=== PATIENT | female | born 1985 | race Caucasian/White ===

== ENCOUNTER 2019-09-22 11:30 | Outpatient (CLI) | payer OTHER, SELFPAY ==
--- NOTE | ~2019-09-22 | US_ITS ---
US OB <= 14 weeks fetus DATE: 09/22/2019 12:24 INDICATION: age determination TECHNIQUE: Real-time imaging and Doppler analysis COMPARISON: None FINDINGS: The uterus measures 12.4 centers height, up to 6 cm AP and 8.5 cm transverse dimension. An intrauterine gestational sac is identified. The sac is normally shaped. A pole and yolk sac are identified. movement is detected. heart rate of 163 bpm. [place]-rump length 3.67 cm, consistent with 10 weeks 4 days +/- 1 week gestational age. IBAN by ultraso und is 04/15/2020 compared to 04/16/2020 by LMP. No pelvic mass or abnormal pelvic fluid collection is evident. The ovaries are not visualized. IMPRESSION: Estimated gestational age of 10 weeks 4 days +/- 1 week; IBAN: 04/15/2020 Reviewed, dictated and finalized at Location A. Reviewed, dictated and finalized at location B. IMPRESSION: Estimated gestational age of 10 weeks 4 days +/- 1 week; IBAN: 2020
== END 2019-09-22 11:31 ==
LOC: MICIMG 11:30
PROVIDERS: Visit Provider Obstetrics & Gynecology
DX: Z34.90 Encounter for supervision of normal pregnancy, unspecified, unspecified trimester (principal); Z3A.10 10 weeks gestation of pregnancy
CPT/HCPCS: 76801

== ENCOUNTER 2019-10-23 09:50 | Emergency (ER) | payer OTHER, SELFPAY ==
--- NOTE | ~2019-10-23 | XR_ITS ---
EXAMINATION: XR ankle RT min 3V INDICATION: Right ankle pain TECHNIQUE: Four views of the right ankle are obtained. COMPARISON: None available FINDINGS: There is diffuse ankle soft tissue swelling. Subtle heterotopic ossifications are seen dist al to the malleolus. Bone alignment is normal. IMPRESSION: 1. Subtle heterotopic ossifications adjacent to the malleoli suggestive of avulsion injuries. Reviewed, dictated and finalized at location A. IMPRESSION: 1. Subtle heterotopic ossifications adjacent to the malleoli suggestive of avul jono injuries.
--- NOTE | 2019-10-23 09:56 | ED.GENADULT ---
HPI - General Adult General Chief complaint: Extremity Injury, Lower Stated complaint: rt ankle injury Time Seen by Provider: 10/23/19 09:56 Source: patient Mode of arrival: ambulatory Limitations: no limitations History of Present Illness HPI narrative: 34-year-old female patient presents to the the medical center with complaints of right ankle pain that started last night. Patient states that she tripped down a stair and twisted her right ankle. Patient states it is been swelling and has had increased pain when putting weight on it. Patient states she has been using a cane to get around. Patient is currently 15 weeks Related Data Home Medications Medication Instructions Recorded Confirmed PNV cmb#95-ferrous fumarate-FA 1 tablet PO DAILY 10/23/19 10/23/19 [] calcium carbonate [Calcium 500] 500 mg PO DAILY 10/23/19 10/23/19 progesterone micronized 400 mg PO DAILY 10/23/19 10/23/19 Allergies Allergy/AdvReac Type Severity Reaction Status Date / Time No Known Allergies Allergy Verified 10/23/19 10:00 Review of Systems Review of Systems: Narrative: CONSTITUTIONAL: Denies fever, chills, or sweats. EYES: Denies visual changes, redness, or discharge. ENT: Denies rhinorrhea, congestion, sore throat, or otalgia. CARDIOVASCULAR: Denies chest pain, palpitations, or edema. RESPIRATORY: Denies cough or dyspnea. GASTROINTESTINAL: Denies abdominal pain, nausea, vomiting, or diarrhea. GENITOURINARY: Denies dysuria or hematuria. SKIN: Denies rash or itching. MUSCULOSKELETAL: Denies back pain, joint pain, or myalgia. Positive right ankle pain NEUROLOGIC: Denies headache, numbness, or weakness. PSYCHIATRIC: Denies anxiety or depression. REPLACED BY [facility] Past Medical History Medical History (Updated 10/23/19 @ 10:37 by IMELDA Pete) Migraines Comments At the time of my signature I agree with nursing past medical history, surgical, social, and family history. There is no relevant family history pertinent to the presenting complaint. Exam Narrative: Exam Narrative: GENERAL: Well-appearing, well-nourished, and in no acute distress. HEAD: Normocephalic, atraumatic. EYES: PERRLA and EOMI. ENT: Nares clear, no rhinorrhea or epistaxis. Mucous membranes moist. NECK: Supple. No lymphadenopathy CHEST: Clear to auscultation. No respiratory distress. HEART: Regular rate and rhythm. No murmur heard. Normal peripheral pulses. ABDOMEN: Soft, nontender, nondistended, normal active bowel sounds. EXTREMITIES: Patient is able to bear weight and ambulate with pain right ankle. The R ankle is without obvious asymmetry or deformity when compared to the L ankle. Patient can flex/extend with pain, normal invert/yuko. No obvious surface trauma, ecchymosis, there is significant soft tissue swelling noted around the lateral malleolus. Bony tenderness to palpation over the right lateral malleolus. Anterior talofibular ligament, posterior talofibular ligament, calcaneofibular ligament nontender and without swelling. No tenderness or deformity of the midfoot or over the proximal fifth metatarsal. Good DP and posterior tibial pulses and sensation to light touch normal. Talar tilt test is negative for ligament laxity to valgus or vargus stress. Negative anterior draw. Peroneal nerve is intact with strong eversion and plantar flexion. SKIN: Warm, dry, no rash. NEURO: No focal deficits. Alert and oriented x3. Course Vital Signs Vital signs: Vital Signs Temperature 36.4 C L 10/23/19 10:02 Pulse Rate 118 H 10/23/19 10:02 Respiratory Rate 16 10/23/19 10:02 Blood Pressure 132/80 10/23/19 10:02 Pulse Oximetry 99 10/23/19 10:02 Temperature 36.4 C L 10/23/19 10:02 Pulse Rate 118 H 10/23/19 10:02 Respiratory Rate 16 10/23/19 10:02 Blood Pressure 132/80 10/23/19 10:02 Pulse Oximetry 99 10/23/19 10:02 Vital signs reviewed. Medical Decision Making Differential Diagnosis Differential Diagnosis: Differential diagnosis: F
[2019-10-23 10:02] VITALS: BP 132/80; PULSE 118; RESP 16; TEMP 36.4; O2SAT 99
== END 2019-10-23 10:47 | disposition home or self-care (01) ==
PROVIDERS: Emergency Provider Nurse Practitioner Family
DX: S99.911A Unspecified injury of right ankle, initial encounter (principal); W10.9XXA Fall (on) (from) unspecified stairs and steps, initial encounter
CPT/HCPCS: 73610; 99203; G0463

== ENCOUNTER 2019-10-25 10:58 | Emergency (ER) | payer OTHER, SELFPAY ==
--- NOTE | ~2019-10-25 | CT_ITS ---
EXAMINATION: CT brain wo con DATE: 10/25/2019 11:36 INDICATION: Arm numbness, nausea and hypertension TECHNIQUE: Computed tomography (CT) of the head was performed without intravenous contrast. Sagittal and coronal reconstructions were performed. The mA was adjusted according to patient size. Iterative reconstruction technique was employed. The dose-length product was 605.33 mGy-cm. COMPARISON: None FINDINGS: No acute intracranial hemorrhage, acute infarction or abnormal extra axial fluid collection. Ventricl es are normal and symmetric. No mass/mass effect. Partially visualized mucous retention cyst in the r ight maxillary sinus. The orbits and mastoid air cells are normal. IMPRESSION: 1. Normal brain. No acute intracranial process. Reviewed, dictated and finalized at location A.
[2019-10-25 11:01] VITALS: BP 170/82; PULSE 83; RESP 20; TEMP 36.2; O2SAT 100
--- NOTE | 2019-10-25 11:22 | ECG_ITS ---
Measurements Intervals [place] Rate: 77 P: 33 MA: 169 QRS: 10 QRSD: 88 T: 3 QT: 408 QTc: 462 Interpretive Statements SINUS RHYTHM WITH SINUS ARRHYTHMIA DELAYED PRECORDIAL R/S TRANSITION BORDERLINE T WAVE ABNORMALITY- INFERIOR LEADS BORDERLINE ECG Electronically Signed On 10-26-2019 9:56:16 CDT by Harpreet Acevedo D.O.
--- NOTE | 2019-10-25 11:23 | PC.NURSE ---
verbal order per marilu toth for ct brain wo contrast stat.
--- NOTE | 2019-10-25 11:32 | ED.GENADULT ---
HPI - General Adult General Chief complaint: Neuro Symptoms/Deficit Stated complaint: dizziness, blurred vision Time Seen by Provider: 10/25/19 11:32 History of Present Illness HPI narrative: Patient is a 34-year-old female who presents the ER with dizziness. Patient woke up at 8 AM to having dizziness with nausea and vision loss. Symptoms have persisted and potentially progressed. Patient reports dizziness worsens with positional movements. Associated with sweating as well as vomiting. Reports intermittent tingling of right arm. Also reports she has difficulty finding words at times and thinks she occasionally slurs her speech. Patient is 15 weeks . No alleviating factors. Related Data Home Medications Medication Instructions Recorded Confirmed PNV cmb#95-ferrous fumarate-FA 1 tablet PO DAILY 10/23/19 10/23/19 [] calcium carbonate [Calcium 500] 500 mg PO DAILY 10/23/19 10/23/19 progesterone micronized 200 mg PO BID 10/25/19 Allergies Allergy/AdvReac Type Severity Reaction Status Date / Time No Known Allergies Allergy Verified 10/25/19 11:04 [facility] Past Medical History Medical History (Updated 10/24/19 @ 00:00 by Jose Roper) Migraines Surgical History Surgical History (Updated 10/25/19 @ 12:11 by Dago Maria MD) No pertinent past surgical history Social History Social History (Updated 10/25/19 @ 12:11 by Dago Maria MD) Substance use type: marijuana Gender identity (if verbalized by the patient): Female Course Vital Signs Vital signs: Vital Signs Temperature 97.1 F L 10/25/19 11:01 Pulse Rate 83 10/25/19 11:01 Respiratory Rate 20 10/25/19 11:01 Blood Pressure 170/82 H 10/25/19 11:01 Pulse Oximetry 100 10/25/19 11:01 Temperature 97.1 F L 10/25/19 11:01 Pulse Rate 74 10/25/19 12:14 Respiratory Rate 20 10/25/19 12:14 Blood Pressure 112/93 H 10/25/19 12:14 Pulse Oximetry 100 10/25/19 12:14 Medical Decision Making Vital Signs Vital Signs: Vital Signs Temperature 97.1 F L 10/25/19 11:01 Pulse Rate 83 10/25/19 11:01 Respiratory Rate 20 08/25/20 11:01 Blood Pressure 170/82 H 10/25/19 11:01 Pulse Oximetry 100 10/25/19 11:01 Temperature 97.1 F L 10/25/19 11:01 Pulse Rate 74 10/25/19 12:14 Respiratory Rate 20 10/25/19 12:14 Blood Pressure 112/93 H 10/25/19 12:14 Pulse Oximetry 100 10/25/19 12:14 Lab Data Result diagrams: 10/25/19 11:28 10/25/19 11:28 Labs: Lab Results 10/25/19 10/25/19 10/25/19 Range/Units 11:28 11:28 13:15 WBC 12.9 H (4.5-10.0) K/mm3 RBC 4.44 (4.2-5.4) M/mm3 Hgb 12.8 (12.0-15.0) g/dL Hct 38.2 (37.0-47.0) % MCV 86.0 (80-100) fl MCH 28.8 (26-34) pg MCHC 33.5 (32-36) g/dl RDW 13.2 (11.5-14.5) % Plt Count 270 (150-375) k/mm3 MPV 10.5 H (7.4-10.4) fl Immature Gran % (Auto) 0.9 H (0-0.5) % Neut % (Auto) 68.1 (45.5-73.1) % Lymph % (Auto) 23.1 (18.3-44.2) % [place] % (Auto) 5.0 (2.6-8.5) % Eos % (Auto) 2.4 (0-4.4) % Baso % (Auto) 0.5 (0.2-1.2) % Lymph # (Auto) 2.97 (0.9-3.2) K/mm3 [place] # (Auto) 0.6 (0.1-0.6) K/mm3 Eos # (Auto) 0.3 (0-0.3) K/mm3 Baso # (Auto) 0.1 (0.0-0.1) K/mm3 Abs Immat Gran (auto) 0.12 H (0.00-0.031) K/mm3 Absolute Neuts (auto) 8.8 H (1.3-6.7) K/mm3 Absolute Nucleated RBC 0.0 (0.0-0.012) K/mm3 Nucleated RBC % 0.0 (0.0-0.2) % Sodium 136 L (137-145) mmol/L Potassium 3.8 (3.4-5.0) mmol/L Chloride 105 (98-107) mmol/L Carbon Dioxide 23 (22-30) mmol/L Anion Gap 8 (8-16) mmol/L BUN 8 (7-17) mg/dL Creatinine 0.40 L (0.7-1.0) mg/dL Estim Creat Clear Calc 216 ml/min Estimated GFR > 60 (59 - ) Glucose 94 (65-105) mg/dL Calcium 8.8 (8.4-10.2) mg/dL Total Bilirubin < 0.1 L (0.2-1.3) mg/dL AST 19 (14-36) U/L ALT 13 (4-35) U/L Alkaline Jayesh
[2019-10-25 11:37] LABS: Basophils Absolute Auto 0.1 K/mm3 (0.0-0.1); Basophils Percent Auto 0.5 % (0.2-1.2); Eosinophils Absolute Auto 0.3 K/mm3 (0-0.3); Eosinophils Percent Auto 2.4 % (0-4.4); Hematocrit 38.2 % (37.0-47.0); Hemoglobin 12.8 g/dL (12.0-15.0); Immature Granulocyte Absolute 0.12 K/mm3 (0.00-0.031); Immature Granulocyte Percent A 0.9 % (0-0.5); Lymphocytes Absolute Auto 2.97 K/mm3 (0.9-3.2); Lymphocytes Percent Auto 23.1 % (18.3-44.2); Mean Corpuscular HGB Conc 33.5 g/dl (32-36); Mean Corpuscular Hemoglobin 28.8 pg (26-34); Mean Platelet Volume 10.5 fl (7.4-10.4); Monocytes Absolute Auto 0.6 K/mm3 (0.1-0.6); Neutrophils Absolute Auto 8.8 K/mm3 (1.3-6.7); Neutrophils Percent Auto 68.1 % (45.5-73.1); Platelet Count Result 270 k/mm3 (150-375); Red Blood Count 4.44 M/mm3 (4.2-5.4); Red Cell Distribution Width 13.2 % (11.5-14.5); White Blood Count 12.9 K/mm3 (4.5-10.0)
[2019-10-25 11:52] LABS: Alanine Aminotransferase 13 U/L (4-35); Albumin Level 4.1 g/dL (3.5-5.1); Alkaline Phosphatase 72 U/L (38-126); Anion Gap 8 mmol/L (8-16); Aspartate Amino Transferase 19 U/L (14-36); Bilirubin,Total < 0.1 mg/dL (0.2-1.3); Blood Urea Nitrogen 8 mg/dL (7-17); Calcium 8.8 mg/dL (8.4-10.2); Carbon Dioxide 23 mmol/L (22-30); Chloride 105 mmol/L (98-107); Estimated CRCL calculation 216 ml/min; Estimated Glomerular Filt Rate > 60; Glucose 94 mg/dL (65-105); Potassium 3.8 mmol/L (3.4-5.0); Sodium 136 mmol/L (137-145)
--- NOTE | 2019-10-25 12:09 | ED.GENADULT ---
HPI - General Adult General Chief complaint: Neuro Symptoms/Deficit Stated complaint: dizziness, blurred vision Time Seen by Provider: 10/25/19 11:32 History of Present Illness HPI narrative: Patient is a 34-year-old female who presents to the ER with dizziness. Patient reports she woke up at 8 AM and is been having symptoms since this event. Everything is moving. She is sweaty and nauseous. She has had episodes of emesis. Symptoms worsen if she moves. She reports she is also having difficulty seeing her peripheral vision out of the right eye and has intermittent numbness right upper extremity. Patient is anxious reports sometimes she forgets her words or slurs her speech. Patient is 15 weeks . Related Data Home Medications Medication Instructions Recorded Confirmed PNV cmb#95-ferrous fumarate-FA 1 tablet PO DAILY 10/23/19 10/23/19 [] calcium carbonate [Calcium 500] 500 mg PO DAILY 10/23/19 10/23/19 progesterone micronized 200 mg PO BID 10/25/19 Allergies Allergy/AdvReac Type Severity Reaction Status Date / Time No Known Allergies Allergy Verified 10/25/19 11:04 Review of Systems Review of Systems: All systems reviewed & are unremarkable except as noted in HPI and below Constitutional: Constitutional: Denies chills, Denies fever(s) and Reports weakness Eyes: Comments: loss of right peripheral vision ENT: Reports dizziness, Denies nasal congestion and Denies sore throat Cardiovascular: Cardiovascular: Denies chest pain and Denies radiating jaw, neck or arm pain Respiratory: Respiratory: Denies cough, Denies dyspnea and Denies wheezing Gastrointestinal: Gastrointestinal: Denies abdominal pain, Reports nausea and Reports vomiting Neurologic: Denies syncope, Denies focal weakness and Reports numbness PMFSH Past Medical History Medical History (Updated 10/25/19 @ 13:35 by Dago Maria MD) Migraines Surgical History Surgical History (Updated 10/25/19 @ 12:11 by Dago Maria MD) No pertinent past surgical history Social History Social History (Updated 10/25/19 @ 12:11 by Dago Maria MD) Substance use type: marijuana Gender identity (if verbalized by the patient): Female Exam Narrative: Exam Narrative: GENERAL: Uncomfortable-appearing, well-nourished, and in mild distress. HEAD: Normocephalic, atraumatic. EYES: PERRL and EOMI with left gaze nystagmus. ENT: Mucous membranes moist. TMs normal bilaterally. CHEST: Clear to auscultation. No respiratory distress. HEART: Regular rate and rhythm. Normal peripheral pulses. EXTREMITIES: Normal range of motion. No edema. SKIN: Warm, diaphoretic, no rash. NEURO: Cranial nerves II through XII intact with exception of right side peripheral vision in bilateral eyes. No upper or lower extremity drift. Mufige-mv-hhrx testing and tjkw-an-ftbi testing intact. There is some slurred speech that is very intermittent. Alert and oriented x3. PSYCH: Normal mood and affect. Course Reevaluation(s) Reevaluation #1: Discussed case with [facility] neurology/stroke team. Spoke with Dr. Regalado who accepted the patient for Dr. Chowdary. Patient with concerning symptoms at a persistent despite low-dose Valium, IV fluid, Zofran, and meclizine. Patient reports that dizziness is slow but not abated. Patient continues to have peripheral vision deficit. She is now developing some headache. She will be given Tylenol. Patient will need to go over for a MRI to further evaluate for sinus venous thrombosis, press syndrome, and posterior stroke. No TPA/ASA recommended. Date: 10/25/19 Time: 13:01 Vital Signs Vital signs: Vital Signs Temperature 97.1 F L 10/25/19 11:01 Pulse Rate 83 10/25/19 11:01 Respiratory Rate 20 10/25/19 11:01 Blood Pressure 170/82 H 10/25/19 11:01 Pulse Oximetry 100 10/25/19 11:01 Temperature 97.1 F L 10/25/19 11:01 Pulse Rate 75 10/25/19 13:32 Respiratory Rate 20 10/25/19 13:32 Blood Pr
[2019-10-25] MEDS: SODIUM CHLORIDE 0.9% IV 1,000 ML 999 ML IV CONT (12:11)
[2019-10-25] MEDS: ONDANSETRON INJ 4 MG/2 ML VIAL IV PUSH ×2 (12:12→16:22)
[2019-10-25] MEDS: MECLIZINE HCL 25 MG TABLET PO (12:12)
[2019-10-25 12:14] VITALS: BP 112/93; PULSE 74; RESP 20; O2SAT 100
[2019-10-25 13:29] LABS: Add Urine Microscopic? YES; Appearance Urine Clear (Clear); Bacteria Urine Trace /hpf; Bilirubin Urine Negative (Negative); Blood Urine Negative (Negative); Color Urine Yellow (Yellow); Glucose Urine UA Negative (Negative); Ketones Urine 2+ mg/dL (Negative); Leukocyte Esterase Ur Trace LEU/UL (Negative); Mucus Urine Few /lpf; Nitrate Urine Negative (Negative); Protein Urine 1+ mg/dL (Negative); RBC Urine 0-2 /hpf (0-2); Squamous Epithelial Cell Urine Moderate /hpf (Few); Urobilinogen Urine Negative mg/dL (<2.0); WBC Urine 0-3 /hpf
[2019-10-25 13:32] VITALS: BP 133/86; PULSE 75; RESP 20; O2SAT 100
[2019-10-25 14:30] VITALS: BP 130/88; PULSE 72; RESP 20; O2SAT 100
--- NOTE | 2019-10-25 15:13 | PC.NURSE ---
1500 REPORT CALLED TO [facility] CALLED FOR TRANSFER
[2019-10-25 16:21] VITALS: BP 157/80; PULSE 88; RESP 20; O2SAT 98
== END 2019-10-25 17:11 | disposition short-term general hospital (02) ==
PROVIDERS: Emergency Medicine; Emergency Provider Emergency Medicine
DX: O99.89 Other specified diseases and conditions complicating pregnancy, childbirth and the puerperium (principal); H54.61 Unqualified visual loss, right eye, normal vision left eye; R42 Dizziness and giddiness; Z3A.15 15 weeks gestation of pregnancy
CPT/HCPCS: 36415; 70450; 80053; 81001; 81025; 85025; 93005; 96361; 96374; 96375; 96376; 99285; A9270; J0131; J2405; J3360; J7030

== ENCOUNTER 2019-11-01 12:57 | Outpatient (CLI) | payer OTHER, SELFPAY ==
--- NOTE | ~2019-11-01 | US_ITS ---
EXAMINATION: US OB follow up DATE: 11/01/2019 14:19 INDICATION: Routine care, second trimester, homozygous methylene tetrahydrofolate reductase mutation TECHNIQUE: Real-time ultrasound of the pelvis was performed. The interpreting radiologist was not pre sent for the study. COMPARISON: None. FINDINGS: There is a single living fetus in vertex presentation. The placenta is anterior and 4.4 cm from the internal cervical os. cardiac activity and movement are noted. heart rate is 149 beats per minute (bpm). The amniotic fluid index is subjectively normal. The following biometric data were obtained: Biparietal diameter (BPD): 3.3 cm; head circumference (HC): 13.0 cm; abdominal circumference (AC): 10 .8 cm; femur length (FL): 2.2 cm. These measurements are concordant. Estimated weight is 166 g +/- 24 g, which correlates with the 71st percentile when 04/15/2020 is used as estimated date of delivery. As single measurements, these parameters are each equal to the following estimated gestational ages w ith ranges of +/- 2 standard deviations: BPD: 16 weeks 3 days ( 15 weeks 2 days - 17 weeks 5 days). HC: 16 weeks 5 days ( 15 weeks 3 days - 17 weeks 6 days). AC: 16 weeks 5 days ( 15 weeks 1 days - 18 weeks 3 days). FL: 16 weeks 5 days ( 15 weeks 2 days - 18 weeks 0 days). estimated gestational age based solely on measurements from this exam is 16 weeks 5 days +/- 1 weeks 1 days. IMPRESSION: 1. Single living fetus in vertex presentation. 2. Estimated weight is 166 g +/- 24 g, which correlates with the 71st percentile when 04/15/2020 is used as estimated date of delivery. Reviewed, dictated and finalized at location A. IMPRESSION: 1. Single living fetus in vertex presentation. 2. Estimated weight is 166 g +/- 24 g, which correlates with the 71st per centile when 04/15/2020 is used as estimated date of delivery.
== END 2019-11-01 12:58 ==
PROVIDERS: Visit Provider Obstetrics & Gynecology
DX: Z34.82 Encounter for supervision of other normal pregnancy, second trimester (principal); Z3A.16 16 weeks gestation of pregnancy
CPT/HCPCS: 76816

== ENCOUNTER 2020-04-02 10:37 | Inpatient (IN) | payer OTHER, SELFPAY ==
[2020-04-02] VITALS (87 sets, daily range): BP systolic 107–163; BP diastolic 49–134; PULSE 64–109; RESP 18; TEMP 36.4–37.1; O2SAT 83–100; BMI 43.9
--- OUTSIDE RECORDS SUMMARY | 2020-04-02 11:58 | XMS_ITS ---
:1985 Author Care Team Providers Name Role Phone TONIO NG MD Automation Test Engineer [phone] Allergies Code Code System Name Reaction Severity Status Onset Contact Metal Itching Mild to Active ? Agent Moderate Notes: Some allergies listed in Document: #[id number] could not be added to this patient's chart. Please review this document and add these allergies to the patient's chart manually as needed. Medications Name Status Start Date Stop Date ? ? amoxicillin/clavulanate potassium Completed ? 12/23/2016 875-125 mg tabs aspirin 81 mg tablet,delayed release Active ? Not available Take 1 tablet twice a day by oral route. azithromycin 250 mg tablet Completed 06/17/201806/17 benzonatate 100 mg capsule Completed ? 09/07 Boudreauxs Butt Paste 40 % topical ointment Active ? Not available Apply 1 application twice a day by topical route. Calcium 600 with Vitamin D3 600 mg (1,500 mg)-400 unit capsule C ompleted ? 06/17/2018 Take 1 capsule twice a day by oral route. calcium carbonate 600 mg calcium (1,500 mg) tablet Completed ? 04/21/2018 TAKE 1 TABLET BY MOUTH TWICE DAILY FOR 30 DAYS calcium carbonate-vitamin D3 600 mg (1,500 mg)-800 unit tablet C ompleted ? 09/22/2017 Take 1 tablet twice a day by oral route for 30 days. Calcium with Vitamin D 600 mg (1,500 mg)-400 unit tablet Complet ed ? 09/08/2019 Take 1 tablet twice a day by oral route. cephalexin 500 mg caps Completed ? 8 cephalexin 500 mg capsule Completed ?
--- OUTSIDE RECORDS SUMMARY | 2020-04-02 11:58 | XMS_ITS | Encounter Summary ---
:1985 Author Care Team Providers Name Role Phone Jean Paul Hernandez MD Temporary Administrative Assistant [phone] Reason for Visit ob routine visit Assessment and Plan 1. Routine care 34yo with h/o GBS koch ier, LGA, MTHFR and non-immune rubella presents for her MOHAMUD at 30w4d ? urinalysis, dipstick 2. Abnormal progesterone Encouraged taking progesterone ! stop @ 36weeks 3. Female sterilization desires pptl with or after vaginal delivery 4. Group B Streptococcus carrier 5. 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 B12 given on 03/15. 6. Large for gestation age fetus Repeat US on 01/23 shows osiel palacios LGA, repeat US in 2 weeks. ? learning about a large for gestational age (lga) baby 7. Rubella non-immune Will vaccinate after 8. Suspected macrosomia 9. Obesity ? when you are overweight: c are instructions Discussion Note: None recorded. Plan of Care Reminders Provider Appointments Ob 15 04/05/2020 Jean Paul elizabeth, 10:00AM ? Return to on or around [facility] 05/14/2020 [facility] Urinalysis, 03/29/2020 In-Of fice Order Dipstick Referral None ? ?
--- OUTSIDE RECORDS SUMMARY | 2020-04-02 11:58 | XMS_ITS | Encounter Summary ---
:1985 Author Care Team Providers Name Role Phone Jean Paul Hernandez MD Platform Loader [phone] Reason for Visit ob routine visit Assessment and Plan 1. Routine care 34yo with h/o GBS koch ier, LGA, MTHFR and non-immune rubella presents for her MOHAMUD at 30w4d 2. 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 3. Large for gestation age fetus Repeat US on 01/23 shows osiel turciosine LGA, repeat US in 2 weeks. ? learning about a large for gestational age (lga) baby ? US, obstetric, mater nal evaluation + anatomy 4. Female sterilization desires pptl ? tubal ligation (SURG) Discussion Note: None recorded. Plan of Care Reminders Provider Appointments Ob 15 04/05/2020 Jean Paul elizabeth, 10:00AM ? Return to on or around [facility] 05/14/2020 [facility] None ? ? recorded. Referral None ? ? recorded. Procedures None ? ? recorded. Surgeries Tubal 02/28/2020 Ben Ligation (SURG) [facility] (Admitt ing) Imaging US, 02/28/2020 [facility]
--- OUTSIDE RECORDS SUMMARY | 2020-04-02 11:58 | XMS_ITS | Encounter Summary ---
:1985 Author Care Team Providers Name Role Phone Jean Paul Hernandez MD Insurance Biller [phone] Reason for Visit ob routine visit Assessment and Plan 1. Routine care 34yo with h/o GBS koch ier, LGA, MTHFR and non-immune rubella presents for her MOHAMUD at 30w4d ? urinalysis, dipstick 2. 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 B12 given on 03/15. 3. Chronic migraine without aura , non-refractory ? scopolamine 1 mg over 3 da ys transdermal patch 4. Large for gestation age fetus Repeat US on 01/23 shows osiel palacios LGA, repeat US in 2 weeks. ? learning about a large for gestational age (lga) baby ? US, obstetric, biophysical profile + non-stress test - weekly ? section (SURG) 5. Female sterilization desires pptl with or after vaginal delivery Discussion Note: None recorded. Plan of Care Reminders Provider Appointments Ob 15 04/05/2020 Jean Paul elizabeth, 10:00AM ? Return to on or around [facility] 05/14/2020 [facility] Urinalysis, 03/22/2020 In-Of fice Order Dipstick Referral None ? ? recorded. Procedures None ? ? recorded. [place]
--- OUTSIDE RECORDS SUMMARY | 2020-04-02 11:58 | XMS_ITS | Encounter Summary ---
:1985 Author Care Team Providers Name Role Phone Jean Paul Hernandez MD Impregnator And Drier Helper [phone] Reason for Visit ob routine visit Assessment and Plan 1. Routine care 34yo with h/o GBS koch ier, LGA, MTHFR and non-immune rubella presents for her MOHAMUD at 30w4d ? urinalysis, dipstick ? culture, vaginal/rectal, s treptococcus group B - PLEASE FAX RESULTS TO [facility] [phone] ? bacterial vaginosis + vagi nitis panel, vaginal - PLEASE FAX RESULTS TO [facility] [phone] ? HSV (1+2) DNA, qual, PCR, unspecified specimen - PLEASE FAX RESULTS TO [facility] AT [phone] 2. 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 ? cyanocobalamin (vit B-12) 1,000 mcg/mL injection solution 3. Female sterilization desires pptl 4. Group B Streptococcus carrier 5. Large for gestation age fetus Repeat US on 01/23 shows osiel palacios LGA, repeat US in 2 weeks. ? learning about a large for gestational age (lga) baby ? induction of labor (PROC) Discussion Note: None recorded. Plan of Care Reminders Provider Appointments Ob 15 04/05/2020 Jean Paul 10:00AM MD David ? Return to on or around [facility] 05/14/2020 [facility]
--- OUTSIDE RECORDS SUMMARY | 2020-04-02 11:58 | XMS_ITS | Encounter Summary ---
:1985 Author Care Team Providers Name Role Phone Jean Paul Hernandez MD Manufacturing Advisor [phone] Reason for Visit None recorded. Assessment and Plan 1. Routine care 34yo with h/o GBS koch ier, fibrocystic breast disease, MTHFR and non-immune rubella presents for her MOHAMUD at 24w4d. ? urinalysis, dipstick ? Boostrix Tdap 2.5 Lf unit- 8 mcg-5 Lf/0.5 mL intramuscular syringe 2. 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 Due on 01/05 ? cyanocobalamin (vit B-12) 1,000 mcg/mL injection solution 3. Suspected macrosomia ? maternal & medicine referral Discussion Note: None recorded.Patient educational handouts: No information available. Plan of Care Reminders Provider Appointments Ob 15 04/05/2020 Jean Paul elizabeth, 10:00AM ? Return to on or around [facility] 05/14/2020 [facility] Urinalysis, 01/10/2020 In-Of fice Order Dipstick Referral Maternal & 01/11/2020 [facility] Referral Procedures None ? ? recorded. Surgeries None ? ? recorded. Imaging None ? ? recorded. Medications N
--- OUTSIDE RECORDS SUMMARY | 2020-04-02 11:58 | XMS_ITS | Encounter Summary ---
:1985 Author Care Team Providers Name Role Phone Jean Paul Hernandez MD Intervention Nurse [phone] Reason for Visit ob routine visit Assessment and Plan 1. Routine care 34yo with h/o GBS koch ier, fibrocystic breast disease, MTHFR and non-immune rubella presents for her MOHAMUD at 30w4d 2. 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 ? cyanocobalamin (vit B-12) 1,000 mcg/mL injection solution 3. Abnormal progesterone Encouraged taking progesterone ! stop @ 36weeks 4. Rubella non-immune Will vaccinate after 5. Large for gestation age fetus Repeat US on 01/23 shows osiel palacios LGA, repeat US in 2 weeks. ? learning about a large for gestational age (lga) baby ? US, obstetric, mater nal evaluation + anatomy - Spoke to Kori at [facility], pt is scheduled for 03/20 ey will continue f/u with pt Discussion Note: None recorded. Plan of Care Reminders Provider Appointments Ob 15 04/05/2020 Jean Paul elizabeth, 10:00AM ? Return to on or around [facility] 05/14/2020 [facility] None ? ? recorded. Referral None ? ? recorded. Procedures None ? ? recorded. Surgeries None ?
[2020-04-02 12:33] LABS: Basophils Absolute Auto 0.1 K/mm3 (0.0-0.1); Basophils Percent Auto 0.5 % (0.2-1.2); Eosinophils Absolute Auto 0.2 K/mm3 (0-0.3); Eosinophils Percent Auto 1.5 % (0-4.4); Hematocrit 31.9 % (37.0-47.0); Hemoglobin 10.7 g/dL (12.0-15.0); Immature Granulocyte Absolute 0.54 K/mm3 (0.00-0.031); Immature Granulocyte Percent A 4.4 % (0-0.5); Lymphocytes Absolute Auto 2.41 K/mm3 (0.9-3.2); Lymphocytes Percent Auto 19.7 % (18.3-44.2); Mean Corpuscular HGB Conc 33.5 g/dl (32-36); Mean Corpuscular Hemoglobin 29.1 pg (26-34); Mean Corpuscular Volume 86.7 fl (80-100); Mean Platelet Volume 9.9 fl (7.4-10.4); Monocytes Absolute Auto 0.7 K/mm3 (0.1-0.6); Monocytes Percent Auto 5.6 % (2.6-8.5); Neutrophils Absolute Auto 8.4 K/mm3 (1.3-6.7); Neutrophils Percent Auto 68.3 % (45.5-73.1); Platelet Count Result 244 k/mm3 (150-375); Red Blood Count 3.68 M/mm3 (4.2-5.4); White Blood Count 12.2 K/mm3 (4.5-10.0)
[2020-04-02] MEDS: LACTATED RINGERS 1,000 ML 125 ML IV CONT ×3 (12:36→21:05)
[2020-04-02] MEDS: AMPICILLIN 2 GM/NS 100 ML 2 GM/100 ML BAG IVPB (12:38)
[2020-04-02] MEDS: OXYTOCIN 30 UNITS/NS 500 ML 30 UNITS/500 ML BAG IV CONT (12:40)
[2020-04-02 12:49] LABS: Alanine Aminotransferase 11 U/L (4-35); Albumin Level 3.4 g/dL (3.5-5.1); Alkaline Phosphatase 116 U/L (38-126); Anion Gap 4 mmol/L (8-16); Aspartate Amino Transferase 17 U/L (14-36); Bilirubin,Total 0.3 mg/dL (0.2-1.3); Blood Urea Nitrogen 12 mg/dL (7-17); Calcium 8.7 mg/dL (8.4-10.2); Carbon Dioxide 23 mmol/L (22-30); Chloride 109 mmol/L (98-107); Estimated Glomerular Filt Rate > 60; Glucose 97 mg/dL (65-105); Potassium 3.8 mmol/L (3.4-5.0); Sodium 136 mmol/L (137-145)
[2020-04-02 13:18] LABS: Barbiturate Screen Urine Negative (Negative); Benzodiazepines Screen Urine Negative (Negative)
[2020-04-02 13:28] LABS: Amphetamine Screen Urine Negative (Negative); Cannabinoid Screen Urine Positive (Negative); Cocaine Screen Urine Negative (Negative); Methadone Screen Urine Negative (Negative); Opiate Screen Urine Negative (Negative); Phencyclidine Screen Urine Negative (Negative)
--- NOTE | 2020-04-02 13:28 | LDADM ---
This patient, Little Limon, was admitted to Labor/Delivery/Recovery 106 on 04/02/20 at 10:37. Plans for labor, pain management and were discussed with patient. Patient/family oriented to hospital policies and general routines including ID bracelet, bed and alarms, visiting hours, pain management, procedures, bathroom and other care routines, personal items, smoking policy, room service/diet and guest tray routines, security routines, and visiting hours. Patient/Family are encouraged to report perceived risks to care and to ask questions if they do not understand what they are told or what they should do. See OBIX for further documentation.
[2020-04-02 14:49] LABS: HIV 1/2 Ab P24 Ag Result Negative (Negative)
[2020-04-02] MEDS: AMPICILLIN 1 GM/NS 50 ML 1 GM/50 ML BAG IVPB ×2 (16:42→21:03)
--- NOTE | 2020-04-02 19:00 | WPDANESEPPF ---
Anes - Initial Pre Proc Eval Procedure: labor epidural Date/Time: 04/02/20 19:00 Surgeon: Jean Paul Hernandez MD Pre Op Diagnosis: labor pain Pre Op Diagnosis: Labor Patient Data Age: 34 Gender: F Height: 1.7 m Weight: 127.25 kg Last Vital Signs Temp 36.9 C 04/02/20 17:45 Pulse 87 04/02/20 18:50 Resp 18 04/02/20 17:45 BP 110/49 L 04/02/20 18:50 Allergies Allergy/AdvReac Type Severity Reaction Status Date / Time contact metal agent Allergy Hives Verified 03/19/20 14:37 peanut Allergy Rash Verified 04/02/20 14:38 acetaminophen [From Percocet] AdvReac Nausea and Verified 03/19/20 14:37 Vomiting oxycodone [From Percocet] AdvReac Nausea and Verified 03/19/20 14:37 Vomiting Laboratory Tests 04/02/20 04/02/20 04/02/20 12:06 12:06 12:06 WBC 12.2 K/mm3 H K/mm3 (4.5-10.0) RBC 3.68 M/mm3 L M/mm3 (4.2-5.4) Hgb 10.7 g/dL L g/dL (12.0-15.0) Hct 31.9 % L % (37.0-47.0) MCV 86.7 fl fl (80-100) MCH 29.1 pg pg (26-34) MCHC 33.5 g/dl g/dl (32-36) RDW 13.0 % % (11.5-14.5) Plt Count 244 k/mm3 k/mm3 (150-375) MPV 9.9 fl fl (7.4-10.4) Immature Gran % (Auto) 4.4 % H % (0-0.5) Neut % (Auto) 68.3 % % (45.5-73.1) Lymph % (Auto) 19.7 % % (18.3-44.2) [place] % (Auto) 5.6 % % (2.6-8.5) Eos % (Auto) 1.5 % % (0-4.4) Baso % (Auto) 0.5 % % (0.2-1.2) Lymph # (Auto) 2.41 K/mm3 K/mm3 (0.9-3.2) [place] # (Auto) 0.7 K/mm3 H K/mm3 (0.1-0.6) Eos # (Auto) 0.2 K/mm3 K/mm3 (0-0.3) Baso # (Auto) 0.1 K/mm3 K/mm3 (0.0-0.1) Abs Immat Gran (auto) 0.54 K/mm3 H K/mm3 (0.00-0.031) Absolute Neuts (auto) 8.4 K/mm3 H K/mm3 (1.3-6.7) Absolute Nucleated RBC 0.0 K/mm3 K/mm3 (0.0-0.012) Nucleated RBC % 0.0 % % (0.0-0.2) Sodium Potassium Chloride Carbon Dioxide Anion Gap BUN Creatinine Estim Creat Clear Calc Estimated GFR Glucose Calcium Total Bilirubin AST ALT Alkaline Phosphatase Total Protein Albumin Urine Opiates Screen Urine Methadone Screen Ur Barbiturates Screen Ur Phencyclidine Scrn Ur Amphetamine Screen U Benzodiazepines Scrn Urine Cocaine Screen U Cannabinoids Screen RPR Pending HIV 1&2 Ab/P24 Ag 4thGn Blood Type A Positive Antibody Screen Negative 04/02/20 04/02/20 04/02/20 12:06 12:09 12:24 WBC RBC Hgb Hct MCV MCH MCHC RDW Plt Count MPV Immature Gran % (Auto) Neut % (Auto) Lymph % (Auto) [place] % (Auto) Eos % (Auto) Baso % (Auto) Lymph # (Auto) [place] # (Auto) Eos # (Auto) Baso # (Auto) Abs Immat Gran (auto) Absolute Neuts (auto) Absolute Nucleated RBC Nucleated RBC % Sodium 136 mmol/L L mmol/L (137-145) Potassium 3.8 mmol/L mmol/L (3.4-5.0) Chloride 109 mmol/L H mmol/L (98-107) Carbon Dioxide 23 mmol/L mmol/L (22-30) Anion Gap 4 mmol/L L mmol/L (8-16) BUN 12 mg/dL mg/dL (7-17) Creatinine 0.40 mg/dL L mg/dL (0.7-1.0) Estim Creat Clear Calc Not Reportable Estimated GFR > 60 (59 - ) Glucose 97 mg/dL mg/dL (65-105) Calcium 8.7 mg/dL mg/dL (8.4-10.2) Total Bilirubin 0.3 mg/dL mg/dL
--- NOTE | 2020-04-02 23:06 | P.PCNOB_ITS ---
OB - Delivery Note Procedure Route of delivery: Episiotomy description: None Laceration Description: Vaginal - 2nd Degree Delivery repair: chromic Specimen: No Quantitative Blood Loss (ml): 200 Anesthesia type: Epidural Disposition: PACU Narrative: Patient prepped and draped in the usual manner for this procedure. M aternal expulsive efforts readily delivered vertex at which time nuchal cord was noted and readily reduced. Rest of baby was delivered without difficulty and the cord was clamped and cut. Placenta delivered spontaneously and the uterus was well contracted. Cervix vagina vulva were inspected with a second-degree vaginal wall as perforation noted. This was approximately using 2 0 chromic rendered this area hemostatic as well as intact. At this point the procedure was considered terminated with immediate postoperative condition of mother and baby both excellent. Baby Weeks of gestation at delivery: 38 Weight (pounds): 7 Weight (ounces): 6 presentation: vertex Placenta delivery description: Spontaneous cord vessel description: 3 Vessels score one minute: 8 score five minutes: 9
--- NOTE | 2020-04-02 23:06 | WPDHPUPDATE1 ---
History and Physical Update Update Date/Time: 04/02/20 23:06 History and Physical has been reviewed, including an updated exam of the patient. There are NO changes in the patient's condition. Risks, benefits, and alternatives have been discussed and questions answered. Patient agrees to proceed with procedure.
--- NOTE | 2020-04-02 23:06 | WPDOBADMIT ---
Obstetrics - Admit Note Admission Note: record reviewed. No pertinent additions to the history and/or any subsequent changes in the physical findings that are not consistent with the expected course of the were found. Additions to the history and/or subsequent changes in the physical findings follow. None.
[2020-04-02] MEDS: OXYTOCIN 30 UNITS/NS 500 ML 30 UNITS/500 ML BAG 125 UNITS IV CONT (23:21)
[2020-04-03] VITALS (11 sets, daily range): BP systolic 120–140; BP diastolic 55–84; PULSE 86–99; RESP 16; TEMP 36.6–36.8; O2SAT 96–99
--- NOTE | 2020-04-03 01:30 | OBPPTRN ---
Patient transferred to post room #287 via wheelchair. Support person present. Oriented to unit, room, information board, rooming in, admission packet and security measures. Patient verbalizes understanding.
[2020-04-03 05:51] LABS: Hematocrit 28.8 % (37.0-47.0); Hemoglobin 9.6 g/dL (12.0-15.0)
--- NOTE | 2020-04-03 07:43 | WPDANLDPN2 ---
Anes-Prog Note L&D Date/Time: 04/03/20 07:43 Comfortable throughout: labor and delivery Neuraxial method: epidural Epidural/Spinal procedure site: clean & non-tender Neuro status: Neuro function grossly intact. Cardiovascular status: normal Respiratory status: normal Airway patency: baseline Mental status: baseline Post-Op hydration status: normal Vital Signs: Last Vital Signs Temp 36.7 C 04/03/20 01:50 Pulse 87 04/03/20 01:50 Resp 16 04/03/20 01:50 BP 130/84 04/03/20 01:50 Pulse Ox 99 04/03/20 01:50 Pain score (VAS): 3 I/O: Intake & Output 04/02/20 04/02/20 04/03/20 15:59 23:59 07:59 Intake Total 100 2600 Output Total 100 Balance 100 2600 -100 Post-procedural complaints: none Patient feedback: Patient satisfied with anesthetic care.
--- NOTE | 2020-04-03 08:00 | PC.NURSE ---
PT introductions made and plan of care discussed per post , pain management, breast feeding, daily care activities, cancelled bilateral tubal ligation, Dr Hernandez and ability to eat regular diet. PT verbalized understanding of such care.
[2020-04-03] MEDS: IBUPROFEN 600 MG TABLET PO ×2 (09:52→16:50)
[2020-04-03] MEDS: POLYSACCHARIDE IRON COMPLEX 150 MG CAPSULE PO ×2 (09:52→16:50)
[2020-04-03] MEDS: MULTIVIT/MIN/PREN/FOL AC/IRON TABLET 1 TAB PO (09:52)
[2020-04-03] MEDS: LANOLIN (LANSINOH) 7.5 GM CREAM 1 APPLIC TOPICAL (09:53)
[2020-04-03 11:02] LABS: Rapid Plasma Reagin Non-Reactive (NonReactive)
[2020-04-03] MEDS: DOCUSATE SODIUM 100 MG CAPSULE PO (16:50)
--- NOTE | 2020-04-04 09:00 | PC.NURSE ---
PT introductions made and plan of care discussed per post , pain management, breast feeding, daily care activities and pending discharge to home. PT verbalized understanding of such care
--- NOTE | 2020-04-04 10:56 | PC.NURSE ---
Mother verbalizes she is able to independently latch with appropriate positioning/alignment. She states she has minimal discomfort, is feeding as required and waking infant to feed if needed. Infant has had 8 effective feedings in the past 24 hours, and is currently meeting outcomes for weight, output, jaundice and feeding frequencies. Mother states she feels confident to continue effective at home. Reviewed transition to breast milk, signs of adequate intake, and engorgement/relief. Instructed to call ICP if intake/output less than required. Reviewed community resources on the [facility] website and in the Mom/Baby guide. Information on outpatient services provided. Mother has no further questions at this time.
[2020-04-04] MEDS: MULTIVIT/MIN/PREN/FOL AC/IRON TABLET 1 TAB PO (10:57)
[2020-04-04] MEDS: POLYSACCHARIDE IRON COMPLEX 150 MG CAPSULE PO (10:58)
[2020-04-04] MEDS: IBUPROFEN 600 MG TABLET PO (11:00)
[2020-04-04 11:30] VITALS: BP 129/76; PULSE 89; RESP 16; TEMP 36.6; O2SAT 99
--- NOTE | 2020-04-04 12:00 | PC.NURSE ---
Patient was given the opportunity to view the discharge video Mother & Baby Care, The First Two Weeks and to ask questions. Patient declined viewing the video and has been given the mother/baby guide for home reference.
--- NOTE | 2020-04-04 14:30 | PC.NURSE ---
PT received discharge instructions per protocol and verbalized understanding of such instructions.
[2020-04-04] MEDS: MEASLES,MUMPS,RUBELLA VACCINE 0.5 ML VIAL SUB-Q (15:23)
--- NOTE | 2020-04-04 15:34 | PC.NURSE ---
PT discharged to home ambulatory accompanied by spouse and to waiting car. Follow up appts confirmed.
[2020-04-04 20:32] LABS: SARS-CoV-2 RNA PCR Negative
[2020-04-05 10:33] VITALS: BP 151/84; PULSE 94; RESP 20; TEMP 36.8; O2SAT 100
--- NOTE | 2020-04-05 12:35 | PM.OBDSVD ---
DS: Admitting Diagnosis Admitting Diagnosis Admitting Diagnosis: OB - DS: Summary OB Procedures : None OB Procedures Intrapartum: Spontaneous Vag Delivery OB Procedures: : None Time Spent with Patient Time attestation: Total time spent providing and/or coordinating discharge services: DS: Data Data Completed and Pending Labs on day of discharge: Labs from last 24 hours 04/04/20 11:10 SARS-CoV-2 RNA (RT-PCR) Negative Discharge Plan Discharge Consulting providers: Calvin Jaime Discharging Clinician: Jean Paul Hernandez Anticipated Discharge Date/Time: 04/04/20 14:22 Patient Disposition: Home, Self-Care Activity: may shower, no straining, may drive after 2 weeks, as tolerated and pelvic rest Diet: regular Wound Care Instructions: follow printed instructions Discharge Instructions: Education: Mom and Baby Guide Given to: Mother Follow-Up: Call your delivering provider's office for an appointment to be seen in: 4 Weeks Mom and baby should come to the [facility] for the follow-up appointment. Appointment Date/Time: April 05, 2020 at 10:00 am What to expect at your follow-up visit: Blood Pressure Check Call [phone] if you are unable to keep your appointment time. BREAST CARE: * Wear a snug supportive bra. * For engorgement discomfort: Breast Feeding: * Apply warm moist washcloths * Express milk as needed to relieve engorgement * Wear loose clothing Bottle Feeding: * May apply ice packs * For sore nipples: * Identify correct latch-on * Apply warm moist washcloths before and after nursing * Air dry nipples after nursing * May apply Lansinoh cream to nipple PERINEAL CARE: * Until bleeding stops, use your gino bottle after urinating * Change your pad frequently throughout the day * You may take sitz baths several times a day (fill your bathtub with warm water and soak for 20 minutes.) Do NOT bathe in the water * No tub baths until seen by your physician - You may shower ACTIVITY: * Rest as much as possible. * Do not exercise or lift anything heavier than your baby (such as laundry or other children.) * Avoid stairs or driving as much as possible. * Do not put anything into the vagina. No douching, tampons, or sexual activity until seen by physician. NOTIFY PHYSICIAN IF YOU HAVE ANY QUESTIONS OR IF ANY OF THE FOLLOWING SYMPTOMS OCCUR: * If your becomes red, swollen, or more painful than what you have experienced in the hospital. * If your vaginal bleeding becomes foul smelling. * If your vaginal bleeding becomes more heavy than a period or if your bleeding changes from pink to bright red. However, you may pass an occasional walnut-sized clot once or twice for the first week . * If you experience a sharp, shooting pain in you calves. * If you discover a hard, reddened area on your breast or if you experience flu-like symptoms * If you have a fever of 100.4 or greater DIET: * Eat regular, well-balanced meals. * Drink plenty of fluids daily. If , drink to thirst. Patient Instructions: Antibiotic Form Stand Alone Forms: General Discharge Information Follow-up/Referrals: Jean Paul Hernandez MD [Physician] - Discharge Medications: New acetaminophen [Mapap (acetaminophen)] 325 mg Tablet 650 mg PO Q6H PRN (Reason: Mild Pain (1-3) Or Headache) RF: 0 Dermoplast (with menthol) 20-0.5 % Aerosol 1 spray topical PRN PRN (Reason: Perineal Discomfort) RF: 0 dibucaine 1 % Ointment 1 applic topical PRN PRN (Reason: Hemorrhoids) RF: 0 Date of admission: 04/02/20 10:37 Primary Care Provider: PHYSICIAN,SENIOR MECHANICAL DESIGNER Admitting Provider: Flash Cast Attending physician on admission: Jean Paul Hernandez Condition: Stable
== END 2020-04-04 15:34 | disposition home or self-care (01) | DRG 807 ==
LOC: ANHLDR 16:23 → ANHOB2 04-03 02:25
PROVIDERS: Admitting Provider Obstetrics & Gynecology; Visit Provider Obstetrics & Gynecology
DX: O42.92 Full-term premature rupture of membranes, unspecified as to length of time between rupture and onset of labor (principal); Z37.0 Single live birth; O99.824 Streptococcus B carrier state complicating childbirth; O70.1 Second degree perineal laceration during delivery; O69.81X0 Labor and delivery complicated by cord around neck, without compression, not applicable or unspecified; Z3A.38 38 weeks gestation of pregnancy
CPT/HCPCS: 36415; 80053; 80307; 85014; 85018; 85025; 86592; 86703; 86850; 86900; 86901; 90710; A9270; C9803; G0432; J0290; J2590; J2795; J7120; U0003; U0005

== ENCOUNTER 2020-04-06 02:08 | Day surgery (SDC) | payer OTHER, SELFPAY ==
[2020-04-04 07:58] VITALS: BMI 43.8
--- NOTE | 2020-04-05 06:10 | PM.IMHP ---
H&P: HPI History of Present Illness Date/Time: 04/05/20 06:10 Chief Complaint: female sterilization procedure Narrative: Little Limon is a 34 year old female Desires post bilateral tubal sterilization Review of Systems Review of Systems: All systems reviewed & are unremarkable except as noted in HPI and below PMFSH Past Medical History Medical History (Updated 04/05/20 @ 06:18 by Jean Paul Hernandez MD) Migraines Vaginal delivery Vaginal delivery Surgical History Surgical History No pertinent past surgical history Family History Family History Mother Diabetes mellitus Grandparent Brain tumor (benign) Social History Social History Years smoked: 2 Smoking status: Former smoker Tobacco type: cigarettes Alcohol intake: current Substance use: current Substance use type: marijuana Other substance usage details: For migranes. Gender identity (if verbalized by the patient): Female Spiritual care concerns: No Meds Home Medications and Allergies Home Medications Medication Instructions Recorded Confirmed Type acetaminophen [Mapap 650 mg PO Q6H PRN tablet 04/04/20 Rx (acetaminophen)] benzocaine-menthol [Dermoplast 1 spray TOPICAL PRN PRN g 04/04/20 Rx (with menthol)] dibucaine 1 applic TOPICAL PRN PRN g 04/04/20 Rx Allergies Allergy/AdvReac Type Severity Reaction Status Date / Time contact metal agent Allergy Hives Verified 04/04/20 07:57 peanut Allergy Rash Verified 04/04/20 07:57 oxycodone [From Percocet] AdvReac Nausea and Verified 04/04/20 07:57 Vomiting Exam Const: General: cooperative, healthy appearing, comfortable, no acute distress, well developed, alert, awake and Physically active Nutritional Appearance: average body habitus and obese Orientation/consciousness: patient oriented x3 HENMT: Head: normal to inspection Ears: hearing grossly normal bilaterally General nose exam: Normal external nose present Face and sinus: normal facial exam Mouth: Yes Normal oral and palatal mucosa present and Yes moist mucous membranes Throat: posterior oropharynx normal Eyes: General: appearance normal, both eyes and all related structures Pupils: Equal, round and reactive pupils present Neck: Neck: normal visual inspection and full ROM Chest: Chest palpation & inspection: normal inspection of the chest Breast/axilla inspection: normal inspection of the breasts Resp: Effort & Inspection: normal respiratory effort Auscultation: clear to auscultation bilaterally Cardio: Rate: regular rate Rhythm: regular rhythm Heart sounds: S1 normal heart sound present and S2 normal heart sound present GI: Inspection: normal to inspection and obesity GI Palp: Yes Soft to palpation Percussion: Yes normal to percussion Auscultation: normal bowel sounds : External Female Exam: normal external appearance Back/Spine/Pelvis: Back: no CVA tenderness Skin: General skin exam: normal color Neuro: General: patient oriented x3, gait normal, tone normal, moves all extremities, no focal motor deficits and CN's II-XI intact bilaterally Extrem: General: normal to inspection and full ROM Psych: Appearance: grossly normal Mental Status: mental status grossly normal Speech and movement: Normal speech and movement present Affect: normal affect Attitude: cooperative Thought process: Normal thought process present Thought content: Yes Normal thought content present Insight: Good insight present (Psych) Judgement: Good judgement present (Psych) Assessment and Plan Assessment and plan (1) Encounter for female sterilization procedure: Code(s): Z30.2 - Encounter for sterilization Status: Acute Additional Plan post bilateral tubal sterilization with bilateral salpingectomy inform
--- NOTE | 2020-04-05 06:22 | WPDHPUPDATE1 ---
History and Physical Update Update Date/Time: 04/06/20 06:22 History and Physical has been reviewed, including an updated exam of the patient. There are NO changes in the patient's condition. Risks, benefits, and alternatives have been discussed and questions answered. Patient agrees to proceed with procedure. post bilateral tubal sterilization with bilateral salpingectomy informed consent obtained under general anesthesia
--- NOTE | 2020-04-05 06:23 | PM.HPGS ---
History of Present Illness History of Present Illness Consent: Risks, benefits, and alternatives have been discussed and questions answered. Patient agrees to proceed with procedure. Chief complaint: desires sterilization Narrative: Little Limon is a 34 year old female Review of Systems Review of Systems: All systems reviewed & are unremarkable except as noted in HPI and below PMFSH Past Medical History Medical History (Updated 04/05/20 @ 06:18 by Jean Paul Hernandez MD) Migraines Vaginal delivery Vaginal delivery Surgical History Surgical History No pertinent past surgical history Family History Family History Mother Diabetes mellitus Grandparent Brain tumor (benign) Social History Social History Years smoked: 2 Smoking status: Former smoker Tobacco type: cigarettes Alcohol intake: current Substance use: current Substance use type: marijuana Other substance usage details: For migranes. Gender identity (if verbalized by the patient): Female Spiritual care concerns: No Meds Home Medications and Allergies Home Medications Medication Instructions Recorded Confirmed Type acetaminophen [Mapap 650 mg PO Q6H PRN tablet 04/04/20 Rx (acetaminophen)] benzocaine-menthol [Dermoplast 1 spray TOPICAL PRN PRN g 04/04/20 Rx (with menthol)] dibucaine 1 applic TOPICAL PRN PRN g 04/04/20 Rx Allergies Allergy/AdvReac Type Severity Reaction Status Date / Time contact metal agent Allergy Hives Verified 04/04/20 07:57 peanut Allergy Rash Verified 04/04/20 07:57 oxycodone [From Percocet] AdvReac Nausea and Verified 04/04/20 07:57 Vomiting Exam Const: General: cooperative and healthy appearing Nutritional Appearance: obese Orientation/consciousness: patient oriented x3 HENMT: Head: normal to inspection Eyes: General: appearance normal, both eyes and all related structures Neck: Neck: normal visual inspection Chest: Chest palpation & inspection: normal inspection of the chest Resp: Effort & Inspection: normal respiratory effort Cardio: Rate: regular rate Rhythm: regular rhythm GI: Inspection: normal to inspection GI Palp: Yes Soft to palpation : External Female Exam: normal external appearance Back/Spine/Pelvis: Back: no CVA tenderness Skin: General skin exam: normal color Neuro: General: patient oriented x3, gait normal, tone normal and No moves all extremities Extrem: General: normal to inspection and full ROM Psych: Appearance: grossly normal Mental Status: mental status grossly normal Speech and movement: Normal speech and movement present Affect: normal affect Attitude: cooperative Thought process: Normal thought process present Assessment and Plan Assessment and plan (1) Encounter for female sterilization procedure: Code(s): Z30.2 - Encounter for sterilization Status: Acute Additional Plan post bilateral tubal sterilization with bilateral salpingectomy informed consent obtained
--- NOTE | 2020-04-05 16:34 | WPDANESEPPF ---
Anes - Initial Pre Proc Eval Procedure: Operation Date: 04/06/20 11:00 Proposed Procedures p Laparoscopic Bilateral Salpingectomy - Jean Paul Hernandez MD Date/Time: 04/05/20 16:34 Surgeon: Jean Paul Hernandez MD Pre Op Diagnosis: desires sterilization Patient Data Age: 34 Gender: F Height: 1.7 m Weight: 127 kg Allergies Allergy/AdvReac Type Severity Reaction Status Date / Time contact metal agent Allergy Hives Verified 04/04/20 07:57 peanut Allergy Rash Verified 04/04/20 07:57 oxycodone [From Percocet] AdvReac Nausea and Verified 04/04/20 07:57 Vomiting Home Medications Medication Instructions Recorded Confirmed Type acetaminophen [Mapap 650 mg PO Q6H PRN tablet 04/04/20 Rx (acetaminophen)] benzocaine-menthol [Dermoplast 1 spray TOPICAL PRN PRN g 04/04/20 Rx (with menthol)] dibucaine 1 applic TOPICAL PRN PRN g 04/04/20 Rx Patient hx anesthesia problems: none Family hx anesthesia problems: none PMFSH Past Medical History Medical History (Updated 04/05/20 @ 16:36 by Les Haywood MD) Asthma Migraines Morbid obesity with BMI of 40.0-44.9, adult Vaginal delivery Vaginal delivery Surgical History Surgical History No pertinent past surgical history Family History Family History Mother Diabetes mellitus Grandparent Brain tumor (benign) Social History Social History Years smoked: 2 Smoking status: Former smoker Tobacco type: cigarettes Alcohol intake: current Substance use: current Substance use type: marijuana Other substance usage details: For migranes. Living arrangements: with family Gender identity (if verbalized by the patient): Female Spiritual care concerns: No Anes - Eval Final PreProcedure Day of Procedure 04/05/20 16:34 Patient weight: obese Heart: regular rate and rhythm Lungs: clear to auscultation and normal air movement Airway: Mallampati scale class II Neurological: alert and oriented Last oral intake: >/= 8 hours ASA classification: III Emergent: no Anesthetic plan: proceed Anesthesia type and monitoring: general ETT Informed Consent: The patient's anesthetic plan and its attendant risks and benefits were discussed with the patient/family/POA. Questions were solicited and answers provided to the satisfaction of the patient/family/POA.
[2020-04-06] VITALS (10 sets, daily range): BP systolic 115–148; BP diastolic 64–94; PULSE 65–91; RESP 12–20; TEMP 36.6–36.8; O2SAT 94–100; BMI 42.4
[2020-04-06] MEDS: ACETAMINOPHEN 500 MG TABLET 1000 MG PO (09:36)
[2020-04-06] MEDS: LACTATED RINGERS 1,000 ML 30 ML IV CONT ×2 (09:36→12:19)
[2020-04-06] MEDS: KETOROLAC 15 MG/ML VIAL (*BKC) IV PUSH (09:37)
[2020-04-06] MEDS: ceFAZolin SODIUM 1 GM VIAL 3 GM IV PUSH (10:55)
--- NOTE | 2020-04-06 12:13 | P.OP_ITS ---
Procedure Note - Detailed Date of procedure: 04/06/20 Pre-op diagnosis: desires sterilization Post-op diagnosis: same Procedure performed: bilateral tubal sterilization with bilateral salpingectomy Description of procedure: Informed consent obtained patient taken to the operating room placed in the supine position was given IV general anesthetic and then was orotracheal intubated without difficulty. Lima catheter was inserted the abdomen was then prepped and she was draped in the usual sterile fashion. Time-out was performed. Infiltration of the umbilicus with Marcaine plain 20 cc bilateral followed by Allis clamp placement. Incision was made across the umbilicus taken down to the fascia and then the peritoneum was entered with electrocautery. Lap sponge and was placed to reflect the bowel from the operative site. In a bilateral sequential fashion using sponge stick as a retractors the fallopian tubes were traced out to the fimbriated aspect the mesial salpinx was endo coagulated and clamps were placed at the proximal tube and fimbria varicose. Fallopian tubes were excised and sent off right and left for pathologic examination confirmation. Two 0 silk ties were placed along the proximal tube and the fimbr iae of Ary bilaterally hemostasis was excellent with elective cautery. The instruments removed sponge was removed sponge needle and instrument counts were correct the anterior peritoneum and fascia was closed with 0 Vicryl suture in a running fashion and returned to close off the subcutaneous space. For 0 Monocryl was used to close the skin and Dermabond was used and a sterile dressing was applied. Patient tolerated the procedure well and to the recovery room in stable condition. was informed of the operative procedure and findings. Anesthesia: GETA Surgeon: Jean Paul Hernandez MD Intermediate Project Manager: election assistant x1 Estimated blood loss (mL): 50 IV fluids (mL): 1,000 Urine output (mL): 200 Drains: No Packing: No Pathology: yes (Right and left fallopian tubes) Complications: None Condition: stable Disposition: same day Findings: Normal uterus normal tubes and ovaries hemostasis excellent along proximal tube and fimbria ovarica Counts correct Complications none Extubated in the OR taken to the recovery room stable condition informed of the operative procedure and findings
[2020-04-06] MEDS: fentaNYL CITRATE INJ (*CRX) 100 MCG/2 ML VIAL 25 MCG IV PUSH ×4 (12:55→13:07)
--- NOTE | 2020-04-06 13:51 | SUR.OPER ---
Updated consent obtained via telephone from patient spouse, Oscar at 1045 by and RN
[2020-04-06] MEDS: ACETAMINOPHEN/CODEINE (*CRX) 300/30 MG TABLET 1 TAB PO (13:53)
== END 2020-04-06 14:31 | disposition home or self-care (01) ==
PROVIDERS: Visit Provider Obstetrics & Gynecology
PROC: (CPT 49320; principal; 2020-04-06 11:00)
DX: Z30.2 Encounter for sterilization (principal); E66.01 Morbid (severe) obesity due to excess calories; Z68.41 Body mass index [BMI] 40.0-44.9, adult; Z87.891 Personal history of nicotine dependence; F12.90 Cannabis use, unspecified, uncomplicated
CPT/HCPCS: 58661; 88302; A9270; J0690; J1100; J1885; J2250; J2405; J2704; J2710; J3010; J7030; J7120

== ENCOUNTER 2021-07-12 10:44 | Outpatient (CLI) | payer OTHER, SELFPAY ==
--- NOTE | ~2021-07-12 | XR_ITS ---
XR chest 2V DATE: 07/12/2021 11:10 INDICATION: Cough TECHNIQUE: 2 views COMPARISON: None FINDINGS: Normal heart size. No hilar or mediastinal enlargement. No pulmonary infiltrate or consolid ation, pleural effusion or pulmonary vascular congestion or pneumothorax. Included skeletal structure s are unremarkable. IMPRESSION: No active cardiopulmonary disease Reviewed, dictated and finalized at location B.
== END 2021-07-12 10:45 ==
PROVIDERS: PCP Emergency Medicine; Visit Provider Emergency Medicine
DX: R05.9 Cough, unspecified (principal)
CPT/HCPCS: 71046